=== PATIENT | male | born 1990 | race Caucasian/White ===

== ENCOUNTER 2017-04-12 09:42 | Emergency (ER) | payer OTHER ==
[~2017-04-12] VITALS: Ht 180.3 cm; Wt 94.0 kg
[2017-04-12 09:48] VITALS: BP 136/85; PULSE 70; RESP 20; TEMP 98.1; O2SAT 97
--- NOTE | 2017-04-12 10:32 | RADRPT ---
EXAM DATE/TIME: 04/12/2017 10:26 [place] COMPARISON: No previous studies available for comparison. INDICATIONS : Left third finger laceration and impact injury. MEDICAL HISTORY : None. SURGICAL HISTORY : None. ENCOUNTER: Initial ACUITY: 1 day PAIN SCORE: 5/10 LOCATION: Left hand, distal third finger FINDINGS: There is there fracture distal tuft third finger in reasonable alignment. No other fractures are curtis reciated. CONCLUSION: Fracture distal tuft third digit. Desean Cobb MD FACR on April 12, 2017 at 10:29 Board Certified Radiologist. This report was verified electronically.
--- NOTE | 2017-04-12 11:28 | PD ---
HPI Chief Complaint: Laceration/Skin Injury Time Seen by Provider: 11:00 Travel History International Travel<30 days: No Contact w/Intl Traveler<30days: No Traveled to known affect area: No History of Present Illness HPI 26-year-old male who sustained a crush injury while at work has a left third finger fracture. Patient is a Upper Sor[place]-speaking male he was offered translation services he declined. He has his boss and family friend with him and requests his family friend translate for him. He denies numbness or tingling in the digit. He has a 2 cm laceration proximal to the nail fold. He reports pain localized to the site. He has full range of motion of the finger his tetanus status is up-to-date. No past medical history. No allergies to medications. PFSH Past Medical History Medical History: Denies Significant Hx Past Surgical History Surgical History: No Previous Surgery Social History Alcohol Use: Yes Tobacco Use: No Substance Use: No Allergies-Medications (Allergen,Severity, Reaction): Coded Allergies: No Known Allergies (Unverified , 04/12/17) Reported Meds & Prescriptions Reported Meds & Active Scripts Active Keflex (Cephalexin) 500 Mg Cap 500 Mg PO Q6H Review of Systems Except as stated in HPI: all other systems reviewed are Neg Physical Exam Narrative GENERAL: [-] SKIN: Focused skin assessment warm/dry. HEAD: Atraumatic. Normocephalic. EYES: Pupils equal and round. No scleral icterus. No injection or drainage. ENT: No nasal bleeding or discharge. Mucous membranes pink and moist. NECK: Trachea midline. No JVD. CARDIOVASCULAR: Regular rate and rhythm. No murmur appreciated. RESPIRATORY: No accessory muscle use. Clear to auscultation. Breath sounds equal bilaterally. GASTROINTESTINAL: Abdomen soft, non-tender, nondistended. Hepatic and splenic margins not palpable. MUSCULOSKELETAL: No obvious deformities. No clubbing. No cyanosis. No edema. Left third digit 2 cm laceration slightly proximal of the nail fold. Brisk cap refill. Normal sensation of the digit. Full range of motion of the finger. No foreign body visualized within the wound. NEUROLOGICAL: Awake and alert. No obvious cranial nerve deficits. Motor grossly within normal limits. Normal speech. PSYCHIATRIC: Appropriate mood and affect; insight and judgment normal. Data Data Last Documented VS Vital Signs Date Time Temp Pulse Resp B/P Pulse Ox O2 Delivery O2 Flow Rate FiO2 04/12/17 09:48 98.1 70 20 136/85 97 Room Air Orders Hand, Complete ([id number]) (04/12/17 ) Iv Access Insert/Monitor (04/12/17 11:56) Cefazolin 2 Gm Premix (Ancef 2 Gm Premix (04/12/17 12:00) Sodium Chloride 0.9% Flush (Ns Flush) (04/12/17 12:00) ^ Splint (04/12/17 12:38) MDM Medical Decision Making Medical Screen Exam Complete: Yes Emergency Medical Condition: Yes Differential Diagnosis Finger fracture, laceration, crush injury Narrative Course 26-year-old male who sustained a crush injury while at work has a left third finger fracture. X-ray reveal a nondisplaced tuft fracture. The extremity is neurovascularly intact. I spoke with hand surgeon Dr. Caro regarding the patient's case. She recommends primary closure, IV antibiotics, discharge patient home with oral antibiotics , finger splint and follow-up with her in office. This was discussed with patient in detail. He agrees to plan area. He verbalizes understanding. I stressed the importance of follow-up with a hand surgeon. Procedures Procedure Narrative LACERATION LOCATION: Left third digit LENGTH: 2 cm NUMBER OF STITCHES/GEMMA: 3 REPAIR: The area of the laceration was prepped with Betadine and sterilely draped. Digital block performed with 1% lidocaine. The wound was copiously irrigated with 2 L of sterile saline and explored without evidence of foreign body, tendon injury or neurovascular injury. The wound was closed using [4-0 Ethilon]. This was a [single] layer repair. A sterile dressing was applied. The patient was advised to keep the dressing clean and dry. Patient tolerated the procedure well. Physician Communication Physician Communication Spoke with Dr. Caro management professional hand surgeon she recommends primary closure, IV antibiotics, splint, discharged home with oral antibiotics and follow-up in clinic. Diagnosis Primary Impression: Finger laceration Qualified Code: S61.313A - Laceration of left middle finger without foreign body with damage to nail, initial encounter Additional Impression: Closed fracture of tuft of distal phalanx of finger Qualified Code: S62.639A - Closed fracture of tuft of distal phalanx of finger , initial encounter Referrals: Khadra Caor MD Additional Instructions: Do not submerge the wound in water. Wear the finger splint at all times. Change the dressing daily. Follow-up with a hand surgeon this week. Take the oral antibiotics as prescribed. Return to the emergency department if you develop increasing pain, fever, chills. Scripts Cephalexin (Keflex)500 Mg [id number] Mg PO Q6H #28 CAP Prov:Юлия Zamora 04/12/17 Disposition: 01 DISCHARGE HOME Condition: Stable Юлия Zamora Apr 12, 2017 11:28
[2017-04-12] MEDS ORDERED: SODIUM CHLORIDE 0.9% FLUSH 10 ML FLUSH IVF PRN (12:00)
[2017-04-12] MEDS ORDERED: ceFAZolin 2 GM PREMIX 50 ML IV ONE (12:00)
[2017-04-12] MEDS ORDERED: CEPH-460 PO (12:37)
== END 2017-04-12 13:38 | disposition home or self-care (01) ==
LOC: NEPK 09:42
DX: S62.633A Displaced fracture of distal phalanx of left middle finger, initial encounter for closed fracture (principal); S61.213A Laceration without foreign body of left middle finger without damage to nail, initial encounter; W23.0XXA Caught, crushed, jammed, or pinched between moving objects, initial encounter; Y99.0 Civilian activity done for income or pay; Z79.899 Other long term (current) drug therapy
CPT/HCPCS: 12001; 73130; 96374; 99284; J0690